=== PATIENT | female | born 1945 | race Caucasian/White ===

== ENCOUNTER 2021-07-30 21:28 | Inpatient (IN) | payer MEDICARE, OTHER ==
[~2021-07-30] VITALS: Ht 170.2 cm; Wt 83.0 kg
[2021-07-30 23:11] LABS: HEMOGLOBIN 17.4 gm/dl (12.3-15.3); RED BLOOD COUNT 5.4 M/UL (4.00-5.10); WHITE BLOOD COUNT 7.6 K/UL (4.5-11.0)
[2021-07-31] MEDS ORDERED: HYDROCODON-ACE1 EAC2 PO (14:33)
[2021-07-31] MEDS ORDERED: KLONOPIN0.5 MG PO (14:33)
[2021-07-31] MEDS ORDERED: ENTRESTO 49 MG1 EACH PO (14:34)
[2021-07-31] MEDS ORDERED: PROAIR DIGIHAL90 MCG PO (14:34)
[2021-07-31] MEDS ORDERED: FUROSEMIDE20 MG PO (14:35)
[2021-07-31] MEDS ORDERED: FAMOTIDINE20 MG PO (14:35)
[2021-07-31] MEDS ORDERED: FLONASE ALLER15.8 ML (14:36)
[2021-07-31] MEDS ORDERED: LORATADINE10 MG PO (14:36)
[2021-07-31] MEDS ORDERED: MECLIZINE HCL25 MG PO (14:36)
[2021-07-31] MEDS ORDERED: NITROSTAT0.4 MG SL (14:37)
[2021-07-31] MEDS ORDERED: METFORMIN HCL500 MG PO (14:37)
[2021-07-31] MEDS ORDERED: METOPROLOL TAR100 MG PO (14:38)
[2021-07-31] MEDS ORDERED: GABAPENTIN300 MG PO (14:38)
[2021-07-31] MEDS ORDERED: LEVOTHYROXINE125 MCG PO (14:39)
[2021-08-01 09:35] LABS: HEMOGLOBIN 16.3 gm/dl (12.3-15.3); RED BLOOD COUNT 5.1 M/UL (4.00-5.10); WHITE BLOOD COUNT 7.7 K/UL (4.5-11.0)
[2021-08-01 11:10] LABS: HBSAG SCREEN Negative (Negative); HEP A AB, IGM Negative (Negative); HEP B CORE AB, IGM Negative (Negative); HEP C VIRUS AB <0.1 (0.0-0.9)
[2021-08-02 03:12] LABS: HEMOGLOBIN 16.8 gm/dl (12.3-15.3); RED BLOOD COUNT 5.25 M/UL (4.00-5.10); WHITE BLOOD COUNT 7.4 K/UL (4.5-11.0)
[2021-08-02 03:38] LABS: BUN/CREATININE RATIO 27 (0-10)
[2021-08-03 03:13] LABS: HEMOGLOBIN 16.7 gm/dl (12.3-15.3); RED BLOOD COUNT 5.23 M/UL (4.00-5.10); WHITE BLOOD COUNT 6.8 K/UL (4.5-11.0)
[2021-08-03 03:32] LABS: BUN/CREATININE RATIO 35 (0-10)
[2021-08-03 05:11] LABS: HIV SCREEN 4TH GENERATION WRFX Non Reactive (Non Reactive)
[2021-08-04 09:15] LABS: HEMOGLOBIN 17.1 gm/dl (12.3-15.3); RED BLOOD COUNT 5.31 M/UL (4.00-5.10); WHITE BLOOD COUNT 6.4 K/UL (4.5-11.0)
[2021-08-04 09:37] LABS: BUN/CREATININE RATIO 32 (0-10)
[2021-08-05 03:12] LABS: HEMOGLOBIN 9.5 gm/dl (12.3-15.3); RED BLOOD COUNT 3.19 M/UL (4.00-5.10); WHITE BLOOD COUNT 11.3 K/UL (4.5-11.0)
[2021-08-06 11:25] LABS: BUN/CREATININE RATIO 23 (0-10)
[2021-08-06 12:36] LABS: HEMOGLOBIN 18.2 gm/dl (12.3-15.3); RED BLOOD COUNT 5.9 M/UL (4.00-5.10)
[2021-08-06 12:37] LABS: WHITE BLOOD COUNT 5.3 K/UL (4.5-11.0)
[2021-08-07 08:41] LABS: RED BLOOD COUNT 5.08 M/UL (4.00-5.10); WHITE BLOOD COUNT 4.3 K/UL (4.5-11.0)
[2021-08-07 08:43] LABS: BUN/CREATININE RATIO 22 (0-10)
[2021-08-08 09:39] LABS: HEMOGLOBIN 15.8 gm/dl (12.3-15.3); RED BLOOD COUNT 4.95 M/UL (4.00-5.10); WHITE BLOOD COUNT 4.4 K/UL (4.5-11.0)
[2021-08-08 09:56] LABS: BUN/CREATININE RATIO 23 (0-10)
[2021-08-08] MEDS ORDERED: ASPIRIN EC81 MG PO (11:49)
[2021-08-08] MEDS ORDERED: DILTIAZEM 24HR300 M1 PO (11:49)
== END 2021-08-08 16:03 | disposition home health service (06) | DRG 291 ==
LOC: ER1 21:28 → PROG CARE 07-31 03:11 → CDU 07-31 03:11 → PROG CARE 07-31 05:37
PROVIDERS: Internal Medicine; Physician Assistant Medical; ADMIT Internal Medicine
DX: I11.0 Hypertensive heart disease with heart failure (principal); I50.43 Acute on chronic combined systolic (congestive) and diastolic (congestive) heart failure; K72.00 Acute and subacute hepatic failure without coma; G93.41 Metabolic encephalopathy; N39.0 Urinary tract infection, site not specified; E87.2 Acidosis; N17.9 Acute kidney failure, unspecified; J96.11 Chronic respiratory failure with hypoxia; Z20.822 Contact with and (suspected) exposure to COVID-19; J44.9 Chronic obstructive pulmonary disease, unspecified; I48.0 Paroxysmal atrial fibrillation; D69.6 Thrombocytopenia, unspecified; E11.9 Type 2 diabetes mellitus without complications; I25.10 Atherosclerotic heart disease of native coronary artery without angina pectoris; K75.81 Nonalcoholic steatohepatitis (NASH); K74.60 Unspecified cirrhosis of liver; I49.5 Sick sinus syndrome; F41.9 Anxiety disorder, unspecified; K59.00 Constipation, unspecified; K21.9 Gastro-esophageal reflux disease without esophagitis; R25.1 Tremor, unspecified; D64.9 Anemia, unspecified; I49.3 Ventricular premature depolarization; E03.9 Hypothyroidism, unspecified; F17.210 Nicotine dependence, cigarettes, uncomplicated; E83.42 Hypomagnesemia; E87.6 Hypokalemia; F03.90 Unspecified dementia, unspecified severity, without behavioral disturbance, psychotic disturbance, mood disturbance, and anxiety; R94.5 Abnormal results of liver function studies; E66.9 Obesity, unspecified; Z91.14 Patient's other noncompliance with medication regimen; Z98.890 Other specified postprocedural states; Z88.0 Allergy status to penicillin; Z88.8 Allergy status to other drugs, medicaments and biological substances; Z88.5 Allergy status to narcotic agent; Z95.0 Presence of cardiac pacemaker; Z79.01 Long term (current) use of anticoagulants; Z79.82 Long term (current) use of aspirin; Z79.899 Other long term (current) drug therapy; Z79.84 Long term (current) use of oral hypoglycemic drugs
CPT/HCPCS: ECHO; 36415; 36600; 71045; 80048; 80053; 80061; 80074; 80307; 81001; 82140; 82550; 82553; 82803; 82962; 83605; 83690; 83735; 83874; 83880; 84100; 84439; 84443; 84484; 84550; 85025; 85027; 85610; 85730; 87040; 87086; 87389; 93005; 93306; 94640; 94664; 94760; 96374; 97110-GP-CQ; 97116-GP-CQ; 97162; 97166; 97530; 97530-GP-CQ; 99285; G0480; J1160; J1630; J1650; J1940; J2185; J3486; J7030; Q9967; U0002